=== PATIENT | male | born 1970 | race Caucasian/White ===

== ENCOUNTER 2017-01-23 07:00 | Inpatient (IN) | payer BC ==
--- NOTE | ~2017-01-23 | OR ---
Unit #: [id number] #: [id number] Patient: QUINN SESAY [id number] [address] [place], [place] [address] [id number] Elida MR#: [id number] NAME: QUINN SESAY. ROOM: 461 Date of Procedure: 01/23/2017 Admission Date: 01/23/2017 Surgeon: Ranjit Trejo III, M.D. : 1970 Attending Physician: Ranjit Trejo III, M.D. Referring Physician: Ranjit Trejo III, M.D. OPERATIVE REPORT PREOPERATIVE DIAGNOSES History of colostomy and perforated diverticulitis. POSTOPERATIVE DIAGNOSES History of colostomy and perforated diverticulitis. PROCEDURE PERFORMED Laparoscopic takedown of colostomy with colorectal anastomosis. DOCK BOSS Wolfgang Smith M.D. SPECIMEN Colostomy sent to pathology. COMPLICATIONS None apparent. ESTIMATED BLOOD LOSS Minimal. INDICATIONS FOR PROCEDURE This is a 46-year-old gentleman, who has undergone prior exploratory laparotomy with colostomy creation for perforated diverticulitis. He is here today for colostomy takedown. DESCRIPTION OF PROCEDURE After consent was obtained, the patient was brought to the operating room, placed in the supine position. General anesthetic was administered and a Church catheter was placed. He was then placed comfortably in dorsal lithotomy position. Next, I irrigated his rectum with Betadine and I closed this colostomy with a 2-0 silk pursestring suture. Next, we prepped and draped his abdomen in standard surgical fashion. I made a 5-mm incision in the right upper quadrant using Optiview to enter the peritoneal cavity without any difficulty. CO2 pneumoperitoneum was then established. Next, a second 5-mm port was placed in the right lower quadrant. I then began using a combination of sharp and blunt dissection to take down all the adhesions. I then obtained circumferential control around his ostomy. I then dissected out all the small bowel loops that were in the pelvic area to where I could easily see the rectal stump. Once this was done, I then made an elliptical incision around the colostomy. I was able to free it up from the surrounding fascial defect. Unit #: [id number] #: [id number] Patient: QIUNN SESAY Once the colostomy was freed up, I then divided the distal colostomy. I then passed the 29 mm EEA anvil through the distal colon opening and brought it out through the antimesenteric border. I then closed the distal colon opening with LENNOX 55 stapler. This was then placed back into the abdominal cavity. I then closed the fascial defect with interrupted #1 Vicryl suture. I then re-obtained CO2 pneumoperitoneum. Next, I passed some dilators up to rectum and was able to see the rectal stump. I did have to dissect this out slightly more to straighten it out. Once I had it mobilized, I then passed the 29-mm EEA stapler per rectum. We deployed the spike, which came out at the end of the rectal stump. I then attached the two ends of the stapler together. It was closed down without any twisting or torsion of the proximal colon. I then fired the stapler. We then removed the stapler without incident. I then submerged the anastomosis under irrigation fluid and occluded the proximal colon and insufflated air per rectum. There was no evidence of any air leak indicating that this was watertight. I then irrigated and had good hemostasis. All needle, sponge, and instrument counts were correct x2. I then reapproximated the skin edges with stapling device. The sterile dressings were then applied. The patient tolerated the procedure without any problems and returned to the recovery room in stable condition. Dictated by... Ranjit Trejo III, M.D. VCL/stone TD: 01/25/2017 00:49 JOB #: [id number] CC: Elvira Alfaro M.D. OPERATIVE REPORT X Ranjit Trejo III, MD PROCEDURE OPERATIVE NOTE
--- NOTE | ~2017-01-23 | DS ---
Unit #: [id number] #: [id number] Patient: QUINN SESAY [id number] [address] [address] [id number] I MR#: [id number] NAME: QUINN SESAY ROOM: 461 Age: 46 Sex: M Admission Date: 01/23/2017 : 1970 Discharge Date: 01/25/2017 Attending Physician: Ranjit Trejo III, M.D. Referring Physician: Ranjit Trejo III, M.D. Primary Care Physician: Rosalba Primary Care Physician DISCHARGE SUMMARY HISTORY/HOSPITAL COURSE Mr. Sesay was brought in the morning of surgery where he had laparoscopic reversal of his colostomy by Dr. Trejo. Postoperatively, he did very well. He was afebrile with stable vital signs throughout. He did not regain bowel function until late in the postoperative day and then after that was able to be readily advanced to a regular diet. The patient had several bowel movements. His abdomen was soft and nontender. His wounds are healing without complication. Laboratories are normal. He will be discharged home today with instructions to undergo diet as tolerated. He may ambulate ad aida but do no strenuous activity. Tegaderm has been placed over his wounds and he may leave the dressing intact in shower. He is to follow up with Dr. Trejo in one to two weeks. Prescription for hydrocodone was left. Dictated by... Karen Mccormack/heath TD: 01/26/2017 09:29 JOB #: [id number] DISCHARGE SUMMARY X Lul Ayala MD X DISCHARGE SUMMARY
[~2017-01-23 07:00] MED LIST: ALEVE220 M1 PO; LORTAB 5/500 TA1 TA1 PO; VICODIN ES 7.51 EAC1 PO
[2017-01-23] MEDS ORDERED: TYL325 PO (07:42)
[2017-01-23 15:57] LABS: BASOPHIL% 0.2 % (0-2.5); HEMATOCRIT 43.6 % (38.0-50.0); LYMPHOCYTE# 0.7 X10e3 (1.0-3.5); LYMPHOCYTE% 4.3 % (17.0-45.0); MEAN CELL VOLUME 95.5 FL (83-96); MEAN CORPUSCULAR HGB CONC 34.5 g/dL (30-36); MEAN PLATELET VOLUME 8.4 FL (6.5-11.5); MONOCYTE# 0.3 X10e3 (0-1.0); MONOCYTE% 1.6 % (3.0-12.0); NEUTROPHIL# 16.3 X10e3 (1.5-7.1); NEUTROPHIL% 93.9 % (40-75); PLATELET COUNT 211 X10e3 (140-420); RED BLOOD COUNT 4.56 X10e (3.90-5.60); RED CELL DISTRIBUTION WIDTH 13.6 % (11.0-15.5); WHITE BLOOD COUNT 17.4 X10e3 (4.0-10.5)
[2017-01-23 15:58] LABS: DIFF IND YES
[2017-01-23 16:16] LABS: PLATELET ESTIMATE NORMAL (NORMAL); RBC NORMAL YES
[2017-01-24 03:52] LABS: EOSINOPHIL% 0.1 % (0.0-7.0); HEMOGLOBIN 13.1 gm/dL (13.0-16.0); LYMPHOCYTE# 1.3 X10e3 (1.0-3.5); LYMPHOCYTE% 6.6 % (17.0-45.0); MEAN CELL VOLUME 94.9 FL (83-96); MEAN CORPUSCULAR HEMOGLOBIN 31.8 PG (28-34); MEAN CORPUSCULAR HGB CONC 33.5 g/dL (30-36); MEAN PLATELET VOLUME 8.6 FL (6.5-11.5); MONOCYTE# 1.3 X10e3 (0-1.0); MONOCYTE% 6.3 % (3.0-12.0); NEUTROPHIL# 17.3 X10e3 (1.5-7.1); PLATELET COUNT 215 X10e3 (140-420); RED BLOOD COUNT 4.11 X10e (3.90-5.60); RED CELL DISTRIBUTION WIDTH 13.1 % (11.0-15.5); WHITE BLOOD COUNT 19.9 X10e3 (4.0-10.5)
[2017-01-24 03:54] LABS: DIFF IND NO
[2017-01-24 04:15] LABS: BLOOD UREA NITROGEN 19 mg/dL (9-23); BUN/CREATININE RATIO 14.61; CALCIUM SERUM 8.5 mg/dL (8.4-10.2); CARBON DIOXIDE 23 mmol/L (22-31); CHLORIDE 106 mmol/L (100-111); CREATININE SERUM 1.3 mg/dL (0.6-1.4); GLOM FILT RATE Estimated ABOVE60 mL/min (>60); GLUCOSE FASTING 117 mg/dL (70-110); POTASSIUM 4.3 mmol/L (3.5-5.1); SODIUM 136 mmol/L (135-145)
[2017-01-25 03:48] LABS: HEMATOCRIT 28.8 % (38.0-50.0); MEAN CELL VOLUME 95.2 FL (83-96); MEAN CORPUSCULAR HGB CONC 34.7 g/dL (30-36); MEAN PLATELET VOLUME 8.7 FL (6.5-11.5); RED BLOOD COUNT 3.03 X10e (3.90-5.60); RED CELL DISTRIBUTION WIDTH 13.2 % (11.0-15.5); WHITE BLOOD COUNT 11.5 X10e3 (4.0-10.5)
[2017-01-25 04:21] LABS: BLOOD UREA NITROGEN 21 mg/dL (9-23); BUN/CREATININE RATIO 19.09; CARBON DIOXIDE 26 mmol/L (22-31); CHLORIDE 104 mmol/L (100-111); CREATININE SERUM 1.1 mg/dL (0.6-1.4); GLOM FILT RATE Estimated ABOVE60 mL/min (>60); GLUCOSE FASTING 93 mg/dL (70-110); POTASSIUM 3.8 mmol/L (3.5-5.1); SODIUM 135 mmol/L (135-145)
[2017-01-25] MEDS ORDERED: HYDROCODONE/APA1 T15 PO (08:16)
[2017-08-10] MEDS ORDERED: NO MEDICATIONS (14:06)
== END 2017-01-25 10:45 | disposition home or self-care (01) | DRG 331 ==
LOC: CSUR 07:00 → CPACUOF 08:26 → C4C 13:55
PROVIDERS: Specialist; Surgery
PROC: 0DBE4ZZ Excision of Large Intestine, Percutaneous Endoscopic Approach (ICD-10-PCS; principal; 2017-01-23 09:00)
DX: Z43.3 Encounter for attention to colostomy (principal); Z98.890 Other specified postprocedural states
CPT/HCPCS: 80048; 83735; 85025; 85027; 88304; J1170; J1650; J1885; J2250; J2270; J3010

== ENCOUNTER 2017-02-18 11:23 | Inpatient (IN) | payer BC ==
--- NOTE | ~2017-02-18 | DS ---
Unit #: [id number] #: [id number] Patient: QUINN SESAY [id number] [address] [address] [id number] I MR#: [id number] NAME: QUINN SESAY. ROOM: 478 Age: 46 Sex: M Admission Date: 02/18/2017 : 1970 Discharge Date: 02/20/2017 Attending Physician: Lul Ayala M.D. Referring Physician: Lul Ayala M.D. Primary Care Physician: Rosalba Primary Care Physician DISCHARGE SUMMARY DIAGNOSIS Colostomy site hematoma versus abscess. PROCEDURES PERFORMED Interventional radiology drainage of fluid collection ostomy takedown site. HOSPITAL COURSE The patient is a 46-year-old gentleman who is status post ostomy reversal. He presents with abdominal pain, nausea and increased white count. CT scan showed a fluid collection at his ostomy site. This was drained by interventional radiology. His pain resolved. His nausea resolved. DISPOSITION The patient is discharged home in good condition. He is to continue with Hemovac drain. ACTIVITY Activity was discussed. FOLLOWUP He is to follow up with Dr. Trejo on Thursday. DISCHARGE MEDICATIONS 1. Home medications. 2. [place] 7.5 mg q.4 h. p.r.n. 3. Augmentin 875 mg b.i.d. Dictated by... Jewel Jay M.D. JNO/gz TD: 02/20/2017 09:01 JOB #: [id number] Unit #: [id number] #: [id number] Patient: QUINN SESAY DISCHARGE SUMMARY Page 1 of 1 X Jewel Jay MD DISCHARGE SUMMARY
--- NOTE | ~2017-02-18 | CT2 ---
[facility] A Service of [facility] & [facility] RADIOLOGY TEXT RESULTS PATIENT: QUINN SESAY LOCATION: [place] [address]- : [birth year] UNIT #: [id number] AGE: [address]: Lul Ayala MD SEX: M ORDER DR: [id number] [facility] [address] [place], [place] [address] [id number] I MR#: [id number] Acc #: [id number] NAME: QUINN SESAY : 1970 SEX: M STUDY DATE/TIME: 02/18/2017 13:41 UNIT: [facility] ROOM: 8 STUDY DESCRIPTION: CT Abd and Pelv W Cont Attending Physician: Lul Ayala M.D. Referring Physician: Lul Ayala M.D. Ordering Physician: Lul Ayala M.D. MEDICAL IMAGING REPORT This report is preliminary unless electronic signature is present EXAM CT abdomen and pelvis with contrast 02/18/2017 1341 hours HISTORY 46-year-old man who underwent colostomy reversal surgery 01/23/2017. Patient presents with new onset nausea and redness and infection at the surgical wound. Progressive symptoms since 01/23/2017. COMPARISON Abdominal film 09/14/[address] abdomen and pelvis 09/10/[address] images were obtained from the lung bases through the pubic symphysis. Sagittal and coronal reconstructions were performed. Contrast was Isovue-370 100 mL IV. Total exam DLP 913 mGy-cm. This CT exam was performed with one or more of the following radiation dose reduction techniques: automatic control, adjustment of mA and/or kV according to patient size, and iterative reconstruction. FINDINGS Images through the lung bases are clear. There are no effusions. The distal esophagus is normal. Images through the abdomen demonstrate a normal appearance to the liver, spleen, pancreas, gallbladder and bile ducts. The adrenal glands and kidneys are normal. The abdominal aorta is normal in caliber. There is a well-defined fluid collection in the anterior midline abdomen centrally just to the left of midline measuring up to 14.2 x 11.2 x 16.8 cm. This abuts the anterior rectus fascia and extends leftward into the lower left anterior abdomen. There is thickening of the left sided rectus muscle superficial to this with mild linear stranding in the adjacent fat which could represent the prior ileostomy site. There is no gas seen STS. [facility] A Service of [facility] & [facility] RADIOLOGY TEXT RESULTS PATIENT: QUINN SESAY LOCATION: [facility] 478-01 : [birth year] UNIT #: [id number] AGE: [address]: Lul Ayala MD SEX: M ORDER DR: within this well-defined collection. This could represent an abscess or seroma. Central density measurement is 13 Hounsfield units. There is some displacement of bowel around this fluid collection without definite bowel involvement. The stomach and small bowel are nondilated. There is no colonic wall thickening. There is end-to-side anastomoses in the mid sigmoid colon region without evidence of fluid, wall thickening or abscess. The rectum is normal. Prostate gland contains benign calcifications without change. IMPRESSION 1. There is a large well-defined anterior abdominal fluid collection measuring 14.2 x 11.3 x 16.8 cm in the midline abdomen, slightly to the left extending along the posterior margin of the rectus fascia extending inferiorly and displacing loops of bowel. This has a thin well-defined wall but no definite gas or calcification. The overlying left rectus muscle is thickened relative to the right and there is some linear injection of the subcutaneous fat superficial to the rectus muscle which could represent the site of previous ostomy. This is new from 09/10/2016. Findings could represent an abscess or large seroma or chronic hematoma. The central density measurement is only 13 Hounsfield units which is indeterminate. Lesion would be amendable to CT-guided or ultrasound-guided aspiration and/or catheter placement as desired. 2. There is an end-to-side anastomoses in the region of the sigmoid colon without evidence of wall thickening or leak. 3. No acute abnormalities are seen elsewhere in the abdomen or pelvis. STAT * RESULT Dictated by... Court Portillo M.D. THIS IS AN ELECTRONICALLY VERIFIED REPORT Court Portillo M.D. at 02/18/2017 5:19 PM ELISA/raúl TD: 02/18/2017 14:18 JOB #: [id number] MEDICAL IMAGING REPORT Page 1 of 1 COPY
--- NOTE | ~2017-02-18 | XA259 ---
[facility] Service of [facility] RADIOLOGY TEXT RESULTS PATIENT: QUINN SESAY LOCATION: [facility] 47- : 72 UNIT #: [id number] AGE: [address]: Lul Ayala MD SEX: M ORDER DR: [id number] [facility] [address] [place], [place] [address] [id number] I MR#: [id number] Acc #: [id number] NAME: QUINN SESAY. : 1970 SEX: M STUDY DATE/TIME: 02/19/2017 12:42 UNIT: [facility] ROOM: [facility] STUDY DESCRIPTION: SUHA Jo Cath Anamika/Retro w/im Attending Physician: Lul Ayala M.D. Referring Physician: Lul Ayala M.D. Ordering Physician: Lul Ayala M.D. Primary Care Physician: No Primary Care Physician MEDICAL IMAGING REPORT This report is preliminary unless electronic signature is present EXAM Ultrasound-guided abdominal drain placement. DATE OF EXAM 02/19/2017 INDICATIONS 46-year-old male with history of recent ostomy takedown. He presents with a large intraabdominal fluid collection on the left just beneath the abdominal wall. This is concerning for possibly an abscess. MEDICATIONS ADMINISTERED IV Versed and Fentanyl. Approximately 30 minutes of sedation time was monitored by appropriately credentialed radiology nursing staff. The risks, benefits and alternatives of the procedure were discussed with the patient and an informed consent was obtained. In the procedure room, a time-out was performed confirming correct patient and procedure. All elements of maximum sterile-barrier technique utilized according to guidelines appropriate for the procedure. TECHNIQUE/FINDINGS Ultrasound of the left side of the abdomen was performed. This demonstrated a large fluid collection which corresponded with the collection demonstrated on the recent CT. The overlying skin was prepped and draped in the usual sterile fashion. 1% lidocaine was utilized to anesthetize the skin and underlying subcutaneous tissues. Next, under ultrasound guidance, a 5-Brazilian Yueh catheter was inserted into this collection. There is return of old blood. A superstiff guidewire was advanced through the catheter. The catheter was removed and the track was serially dilated to 12-Brazilian. Next, a 12-Brazilian pigtail catheter was advanced over the guidewire and positioned within the center of the collection. A sample of old blood was aspirated and sent for culture. [facility] Service of [facility] RADIOLOGY TEXT RESULTS PATIENT: QUINN SESAY LOCATION: [place] [address] : [birth year] UNIT #: [id number] AGE: [address]: Lul Ayala MD SEX: M ORDER DR: The drain was hooked up to suction drainage and a sterile dressing was applied. The drain was sutured into place. The patient tolerated the procedure well without immediate complications. IMPRESSION Technically successful placement of a 12-Brazilian pigtail drain into a intraabdominal fluid collection containing old blood. Dictated by... Kendell Rodriguez M.D. THIS IS AN ELECTRONICALLY VERIFIED REPORT Kendell Rodriguez M.D. at 02/20/2017 2:34 PM DONALD/hammad TD: 02/19/2017 19:39 JOB #: [id number] MEDICAL IMAGING REPORT Page 1 of 1 COPY
--- NOTE | ~2017-02-18 | HP ---
Unit #: [id number] #: [id number] Patient: QUINN SESAY [id number] [address] [address] [id number] Elida MR#: [id number] NAME: QUINN SESAY ROOM: 478 Age: 46 Sex: M Admission Date: 02/18/2017 : 1970 Attending Physician: Lul Ayala M.D. Referring Physician: Lul Ayala M.D. HISTORY AND PHYSICAL HISTORY AND EXAM Mr. Sesay is a 46-year-old gentleman who previously had perforated diverticulitis requiring emergency surgery and colostomy formation. After he had recovered, his colostomy was reversed by Dr. Trejo and he was at home doing well until today when he called stating that he was complaining of nausea, fever and increasing abdominal pain. I ordered outpatient labs and a CT scan of the abdomen and pelvis. His labs were generally unremarkable except for a white count of 16,[address] scan he had a intraabdominal abscess that was not related to the anastomotic site. It probably is related to the old stoma site. It was amenable, according to the Radiologist, to percutaneous drainage. PAST MEDICAL HISTORY 1. Diverticulitis with perforation as described above. 2. Epididymoorchitis. 3. He has had some chronic right knee discomfort. 4. He has had an appendectomy. 5. Umbilical hernia repair. 6. Previous below knee fracture. 7. [place] spotted fever. ALLERGIES No allergies to medication. CURRENT MEDICATIONS Current medications include [place] 7.5 for pain otherwise no medications. FAMILY HISTORY He is unaware of any chronic or inheritable diseases. SOCIAL HISTORY Social alcohol drinker; he quit smoking five years ago. REVIEW OF SYSTEMS He has nausea but no vomiting. His bowel movements have been normal with no hematochezia or melena. No hematemesis He has had low-grade fever. PHYSICAL EXAMINATION GENERAL APPEARANCE: On current examination the patient is awake, alert and oriented in the CT scan waiting room. HEENT: Unremarkable. CARDIAC EXAM: Regular rhythm. Unit #: [id number] #: [id number] Patient: QUINN SESAY LUNGS: Clear. ABDOMEN: Abdomen is soft. He has a little bit of eschar at his stoma site wound but no erythema or warmth. His abdomen is otherwise soft but he does complaint of tenderness. There is no involuntary guarding or rebound. EXTREMITIES: No edema. NEURLOGICALLY: Grossly intact. DIAGNOSTIC STUDIES LABORATORY: Laboratories are on the chart, white count 16 and chemistry otherwise generally unremarkable except for some elevation of the transaminase. IMAGING: CT scan shows an abscess as described. It does not appear to be related to an anastomotic leak. ASSESSMENT AND PLAN Patient with a symptomatic intraabdominal abscess: We plan on admitting the patient to the hospital for percutaneous drainage by Interventional Radiology. In the interim he will be started on IV antibiotics and followed to the resolution of this problem. I have discussed this with the patient. He understands and agrees to admission. Dictated by Karen Mccormack/phi TD: 02/18/2017 15:04 JOB #: [id number] HISTORY AND PHYSICAL Page 1 of 1 X Lul Ayala MD X HISTORY AND PHYSICAL
[~2017-02-18 11:23] MED LIST changes: +HYDROCODONE/APA1 T15 PO; +TYL325 PO
[2017-02-18 12:07] LABS: URINE APPEARANCE CLOUDY; URINE BLOOD NEG (NEG); URINE GLUCOSE NEG (NEG); URINE KETONE TRACE (NEG); URINE LEUKOCYTE ESTERASE TRACE (NEG); URINE NITRATE NEG (NEG); URINE PH 5.5 (5-8); URINE PROTEIN 1+ (NEG)
[2017-02-18 12:10] LABS: HEMATOCRIT 36.3 % (38.0-50.0); HEMOGLOBIN 12.1 gm/dL (13.0-16.0); MEAN CELL VOLUME 90.4 FL (83-96); MEAN CORPUSCULAR HEMOGLOBIN 30.2 PG (28-34); MEAN CORPUSCULAR HGB CONC 33.4 g/dL (30-36); MEAN PLATELET VOLUME 7.8 FL (6.5-11.5); RED BLOOD COUNT 4.02 X10e (3.90-5.60); RED CELL DISTRIBUTION WIDTH 14.8 % (11.0-15.5); URINE BACTERIA AUWI NEG (NEGATIVE); URINE SQUAMOUS EPITHELIAL CELL NONE SEEN /[HPF]; UWBCS1 AUWI 0-2 (0-5); WHITE BLOOD COUNT 16.1 X10e3 (4.0-10.5)
[2017-02-18 12:12] LABS: URINE BILIRUBIN NEG (NEG)
[2017-02-18 12:13] LABS: URINE COLOR DK YELLOW; URINE SOURCE CLEAN CATCH
[2017-02-18 13:01] LABS: ALBUMIN SERUM 3.2 g/dL (3.5-5.0); BILIRUBIN,TOTAL 1.2 mg/dL (0.2-2.0); CALCIUM SERUM 9.3 mg/dL (8.4-10.2); GLOM FILT RATE Estimated 90.5 mL/min (>60); POTASSIUM 4.4 mmol/L (3.5-5.1)
[2017-02-19 09:12] LABS: PARTIAL THROMBOPLASTIN TIME 30.1 SECONDS (23.5-31.3); PROTHROMBIN TIME (PATIENT) 10.9 SECONDS (9.6-11.5)
[2017-02-20] MEDS ORDERED: AUGMENTIN PO (10:07)
[2017-02-20] MEDS ORDERED: HYDROCODON-ACE1 EAC9 PO (10:10)
[2017-08-10] MEDS ORDERED: NO MEDICATIONS (14:06)
== END 2017-02-20 10:41 | disposition home or self-care (01) | DRG 863 ==
LOC: CCAT 11:23 → C4C 14:50
PROVIDERS: Radiology Diagnostic Radiology; Specialist
PROC: 0W9F30Z Drainage of Abdominal Wall with Drainage Device, Percutaneous Approach (ICD-10-PCS; principal; 2017-02-19)
DX: T81.4XXA Infection following a procedure, initial encounter (principal); L02.211 Cutaneous abscess of abdominal wall; L76.32 Postprocedural hematoma of skin and subcutaneous tissue following other procedure; Y83.8 Other surgical procedures as the cause of abnormal reaction of the patient, or of later complication, without mention of misadventure at the time of the procedure; Z87.891 Personal history of nicotine dependence
CPT/HCPCS: 36415; 74177; 76942; 80053; 81003; 82150; 83690; 85027; 85610; 85730; 87070; 87075; 87205; J1650; J2250; J2270; J2405; J2543; J2550; J3010; Q9967

== ENCOUNTER → 2017-02-23 | Outpatient (CLI) | payer BC ==
[~2017-02-23] MED LIST changes: +AUGMENTIN PO; +HYDROCODON-ACE1 EAC9 PO; +NO MEDICATIONS
--- NOTE | ~2017-02-23 | CT2 ---
[facility] A Service of [facility] & [facility] RADIOLOGY TEXT RESULTS PATIENT: QUINN SESAY [facility] UN[facility] #: [id number] AGE: [address]: Jewel Jay MD SEX: M ORDER DR: [id number] [facility] [address] [place], [place] [address] [id number] O MR#: [id number] Acc #: [id number] NAME: QUINN SESAY : 1970 SEX: M STUDY DATE/TIME: 02/23/2017 10:46 UNIT: [facility] ROOM: STUDY DESCRIPTION: CT Abd and Pelv W Cont Attending Physician: Jewel Jay M.D. Referring Physician: Jewel Jay M.D. Ordering Physician: Jewel Jay M.D. Primary Care Physician: Primary Care Physician No MEDICAL IMAGING REPORT This report is preliminary unless electronic signature is present EXAM CT of the abdomen and pelvis with contrast INDICATION Intraabdominal abscess. This is identified on a CT which was performed February 18, 2017. The patient subsequently underwent drain placement on February 19, 2017. This is a followup study. TECHNIQUE Axial CT images were obtained from the dome of the diaphragm through the symphysis pubis following the administration of intravenous contrast material. This CT exam was performed with one or more of the following radiation dose reduction techniques: automatic exposure control, adjustment of mA and/or kV according to patient size, and iterative reconstruction. FINDINGS Images through the lung bases are clear. The visualized portions of the liver appear unremarkable as are the spleen, stomach, proximal small bowel, adrenal glands, gallbladder, left kidney and pancreas. Patient has a low-attenuation lesion seen within the inferior pole of the right kidney which is too small to accurately characterize but may reflect a cyst. An additional low-attenuation lesion is seen within the superior pole and again may reflect a cyst. Patient is again noted to have a collection within the left upper quadrant. This is smaller than on prior study and a drain has been placed within it. Collection now measures 9.1 x 4.1 cm, previously 14.2 x 11.3 cm. Drain appears to be appropriately positioned within the collection. There is no evidence of mechanical bowel obstruction. There are changes of prior colon resection, again no evidence of obstruction. No free fluid or adenopathy is seen within the pelvis. Dystrophic calcifications are seen within the prostate gland. Urinary bladder is within normal limits. [facility] A Service of [facility] RADIOLOGY TEXT RESULTS PATIENT: QUINN SESAY LOCATION: [facility] : 72 UNIT #: [id number] AGE: [address]: Jewel Jay MD SEX: M ORDER DR: Review of bony windows does not demonstrate any aggressive osseous abnormalities. IMPRESSION 1. Previously identified left upper quadrant collection has diminished in size now measuring 9.1 x 4.2 cm, previously 14.2 x 11.3 cm. Given persistent fluid within the collection, I would suggest leaving the drain in place for several more days before performing a repeat CT scan. The drain does appear to be putting out material still so I do not think that it is clogged. 2. Changes of prior colon resection without evidence of obstruction, 3. Suspected right renal cysts. Please see the body of the report for any other additional incidental findings. Dictated by... Fiordaliza Singh M.D. THIS IS AN ELECTRONICALLY VERIFIED REPORT Fiordaliza Singh M.D. at 02/23/2017 5:09 PM ACACIA/kerry TD: 02/23/2017 14:29 JOB #: [id number] MEDICAL IMAGING REPORT Page 1 of 1 COPY
== END | disposition home or self-care (01) ==
LOC: CCAT 09:37
DX: T81.4XXA Infection following a procedure, initial encounter (principal); Z90.49 Acquired absence of other specified parts of digestive tract
CPT/HCPCS: 74177; Q9967

== ENCOUNTER → 2017-02-26 | Outpatient (CLI) | payer BC ==
--- NOTE | ~2017-02-26 | XA259 ---
[facility] A Service of [facility] RADIOLOGY TEXT RESULTS PATIENT: QUINN SESAY LOCATION: [facility] : 72 UNIT #: [id number] AGE: [address]: Ranjit Trejo III, MD SEX: M ORDER DR: [id number] [facility] [address] [place], [place] [address] [id number] O MR#: [id number] [facility] #: [id number] NAME: QUINN SESAY. : 1970 SEX: M STUDY DATE/TIME: 02/26/2017 12:00 UNIT: [facility] ROOM: STUDY DESCRIPTION: SUHA Jo Cath Anamika/Retro w/im Attending Physician: Ranjit Trejo III, M.D. Referring Physician: Ranjit Trejo III, M.D. Ordering Physician: Fiordaliza Singh M.D. Primary Care Physician: Rosalba Primary Care Physician MEDICAL IMAGING REPORT This report is preliminary unless electronic signature is present EXAM Fluoroscopically guided abdominal abscess drain exchange. INDICATION Mr. Sesay is a 46-year-old man who underwent placement of a drain and intraabdominal abscess on 02/19/2017. This appeared to be old blood. He underwent repeat CT scan today which showed a persistent residual fluid collection. He is having some drainage from the drain but I wondered if it was intermittently clogging so I opted to exchange it. PROCEDURE The procedure was explained to the patient including risks, benefits, potential complications, and potential for alternative forms of treatment. Informed consent was obtained and prior to initiating the procedure, a formal time-out procedure was performed. Using all elements of maximal sterile barrier technique including hand hygiene, caps, sterile gowns and gloves and masks, the preexisting drain was prepped with 2% chlorhexidine for cutaneous antisepsis and covered with a large sterile sheet. Preliminary fluoroscopic image was obtained after the injection of contrast which showed loculated material within the cavity. I advanced an Amplatz wire through the catheter which was then removed over a wire and a new 12-Uzbek drain was advanced over the line and positioned within the collection. There was some drainage of serosanguineous material. Following placement of the catheter, it was secured with an adhesive dressing and placed to suction drainage. Ultimately, this patient may require upsize of the drain to a 14-Uzbek catheter if the collection fails to resolve following catheter exchange. IMPRESSION Successful replacement of this patient's 12-Uzbek pigtail drainage catheter within the intraabdominal collection. Ultimately, due to the loculated material the drain may need to be upsized following his next CT STS. [facility] A Service of [facility] RADIOLOGY TEXT RESULTS PATIENT: QUINN SESAY LOCATION: [facility] : 72 UNIT #: [id number] AGE: [address]: Ranjit Trejo III, MD SEX: M ORDER DR: if the collection fails to improve. Dictated by... Fiordaliza Singh M.D. THIS IS AN ELECTRONICALLY VERIFIED REPORT Fiordaliza Singh M.D. at 02/28/2017 2:05 PM AFF/tmw TD: 02/27/2017 10:44 JOB #: [id number] MEDICAL IMAGING REPORT Page 1 of 1 COPY
--- NOTE | ~2017-02-26 | CT2 ---
[facility] A Service of [facility] & [facility] RADIOLOGY TEXT RESULTS PATIENT: QUINN SESAY LOCATION: [facility] : 71 UNIT #: [id number] AGE: [address]: Ranjit Trejo III, MD SEX: M ORDER DR: [id number] [facility] [address] [place], [place] [address] [id number] O MR#: [id number] [facility] #: [id number] NAME: QUINN SESAY. : 1970 SEX: M STUDY DATE/TIME: 02/26/2017 10:38 UNIT: [facility] ROOM: STUDY DESCRIPTION: CT Abd and Pelv W Cont Attending Physician: Ranjit Trejo III, M.D. Referring Physician: Ranjit Trejo III, M.D. Ordering Physician: Ranjit Trejo III, M.D. Primary Care Physician: No Primary Care Physician MEDICAL IMAGING REPORT This report is preliminary unless electronic signature is present EXAM CT abdomen and pelvis with contrast. INDICATION Mr. Sesay is a 46-year-old man. He had a history of colostomy reversal surgery on 01/23/2017. He subsequently developed a fluid collection within the left upper quadrant measuring up to 11.3 x 14.2 cm. He subsequent underwent drain placement in this collection on 02/19/2017. Repeat CT on 02/23/2017 showed persistence of the collection. His drain was subsequently flushed. He returns for reevaluation today. TECHNIQUE Axial CT images were obtained from dome of the diaphragm through symphysis pubis following administration of intravenous contrast material. This CT exam was performed with one or more of the following radiation dose reduction techniques: automatic exposure control, adjustment of mA and/or kV according to patient size, and iterative reconstruction. FINDINGS Fluid collection within the left upper quadrant is stable to perhaps slightly smaller in size when compared to the most recent CT. It measures 7.7 x 4.0 cm, previously it measured 9.1 x 4.1 cm. Images through the lung bases are clear. Stomach and proximal small bowel within normal limits. The liver and gallbladder appear normal, as do the spleen and pancreas. Adrenal glands are within normal limits, as is the left kidney. Patient has probably a right renal cyst. There is some persistent residual inflammatory stranding around the collection, but it is probably not significantly changed when compared to prior study. There are postsurgical changes involving the sigmoid colon without evidence of obstruction. Prostate gland is enlarged and contains some dystrophic calcifications. Some mild inflammatory stranding is also seen involving the sigmoid colon, likely STS. [facility] A Service of [facility] / [facility] RADIOLOGY TEXT RESULTS PATIENT: QUINN SESAY LOCATION: [facility] : 71 UNIT #: [id number] AGE: [address]: Ranjit Trejo III, MD SEX: M ORDER DR: postsurgical in nature. Review of bony windows does not reveal any aggressive osseous abnormalities. IMPRESSION 1. Persistence of the patient's left upper quadrant collection. We will plan on drain exchange to see if this improves drainage of the collection. Ultimately the patient may require upsize of the drain for full evacuation of this collection. 2. Postsurgical changes involving the sigmoid colon, without evidence of obstruction. 3. Suspected right renal cyst. Dictated by... Fiordaliza Singh M.D. THIS IS AN ELECTRONICALLY VERIFIED REPORT Fiordaliza Singh M.D. at 02/28/2017 2:08 PM ACACIA/johnnie TD: 02/27/2017 11:42 JOB #: [id number] MEDICAL IMAGING REPORT Page 1 of 1 COPY
== END | disposition home or self-care (01) ==
LOC: CCAT 09:37
DX: T81.4XXA Infection following a procedure, initial encounter (principal)
CPT/HCPCS: 74177; 75984; 76080; J2250; J3010; Q9967

== ENCOUNTER → 2017-03-02 | Outpatient (CLI) | payer BC ==
--- NOTE | ~2017-03-02 | CT4 ---
[facility] A Service of [facility] / [facility] RADIOLOGY TEXT RESULTS PATIENT: QUINN SESAY LOCATION: [facility] : 71 UNIT #: [id number] AGE: [address]: Ranjit Trejo III, MD SEX: M ORDER DR: [id number] [facility] [address] [place], [place] [address] [id number] O MR#: [id number] Acc #: [id number] NAME: QUINN SESAY. : 1970 SEX: M STUDY DATE/TIME: 03/02/2017 9:42 UNIT: [facility] ROOM: STUDY DESCRIPTION: CT Abd and Pelv Wo Cont Attending Physician: Ranjit Trejo III, M.D. Referring Physician: Ranjit Trejo III, M.D. Ordering Physician: Ranjit Trejo III, M.D. Primary Care Physician: Primary Care Physician No MEDICAL IMAGING REPORT This report is preliminary unless electronic signature is present EXAM Abdomen and pelvis CT no contrast, 03/02/2017 INDICATION 46-year-old male with history of abdominal abscess. History of drain placement. History of colon surgery. No history of malignancy. TECHNIQUE Noncontrast abdomen and pelvis CT was performed. This CT exam was performed with one or more of the following radiation dose reduction techniques: automatic exposure control, adjustment of mA and/or kV according to patient size, and iterative reconstruction. COMPARISON 02/26/[address] ABDOMEN: Exam degraded by noncontrast technique. Included lung bases clear. There is no pericardial or pleural effusion. Aorta demonstrates no aneurysm. Spleen, adrenal glands, pancreas and gallbladder unremarkable. Liver unremarkable. Kidneys are normal. CT PELVIS: Bladder unremarkable. Prostate unremarkable. No drainable fluid collection in the pelvis. Patient is status post sigmoid colonic surgery and reanastomosis. There is residual stranding at the operative site but no drainable fluid collection is seen or adenopathy present. No evidence of upstream obstruction. Appendix appears to be surgically absent. There is redemonstration of a fluid collection deep to the rectus [facility] A Service of [facility] RADIOLOGY TEXT RESULTS PATIENT: QUINN SESAY LOCATION: [facility] : 71 UNIT #: [id number] AGE: [address]: Ranjit Trejo III, MD SEX: M ORDER DR: musculature on the left. There is a drainage catheter within the fluid collection. It measures up to a maximum diameter of the about 7.6 x 4.4 cm, previously 7.7 x 4.0 cm. There is some high-attenuation fluid within the collection which is nonspecific and may reflect recent manipulation or contrast injection or proteinaceous debris. Probable tiny dot of air within the collection. Drainage catheter appears to be in satisfactory position centrally within the collection. No new drainable fluid collection identified. Inguinal canals are unremarkable. No suspicious bone lesion. IMPRESSION 1. Persistent fluid collection in the left upper quadrant with a drainage catheter present. It is stable to perhaps minimally smaller than on the prior study. There is some high-attenuation fluid within the collection that may reflect proteinaceous debris or blood products or recent injection of contrast material and this should be correlated clinically. 2. Redemonstration of postoperative changes of the base of the cecum and sigmoid colon. No bowel obstruction. 3. No hydronephrosis or obstructing stone with respect to either kidney. Dictated by... Andrae Georges M.D. THIS IS AN ELECTRONICALLY VERIFIED REPORT Andrea Georges M.D. at 03/02/2017 10:46 PM Kelsie TD: 03/02/2017 16:05 JOB #: [id number] MEDICAL IMAGING REPORT Page 1 of 1 COPY
== END | disposition home or self-care (01) ==
LOC: CCAT 09:04
DX: T81.4XXA Infection following a procedure, initial encounter (principal); Z97.8 Presence of other specified devices; Z98.890 Other specified postprocedural states
CPT/HCPCS: 74176

== ENCOUNTER → 2017-03-04 | Outpatient (CLI) | payer BC ==
--- NOTE | ~2017-03-04 | XA3 ---
[facility] A Service of [facility] & [facility] RADIOLOGY TEXT RESULTS PATIENT: QUINN SESAY LOCATION: [facility] : 71 UNIT #: [id number] AGE: [address]: Lul Ayala MD SEX: M ORDER DR: [id number] [facility] [address] [place], [place] [address] [id number] O MR#: [id number] Acc #: [id number] NAME: QUINN SESAY. : 1970 SEX: M STUDY DATE/TIME: 03/04/2017 9:30 UNIT: [facility] ROOM: STUDY DESCRIPTION: XA Abscess Drain Injection Attending Physician: Lul Ayala M.D. Ordering Physician: Lul Ayala M.D. Primary Care Physician: No Primary Care Physician MEDICAL IMAGING REPORT This report is preliminary unless electronic signature is present EXAM Abscess drain injection and change under fluoroscopy 03/04/2017. HISTORY Left lower quadrant abscess status post colostomy placement. PROCEDURE The procedure and risks and options were discussed with the patient who understands and wishes to proceed. The tube over the left flank was prepped and draped with chlorhexidine solution. Maximal sterile barrier technique was utilized including gloves, gowns, hats, masks, and shoe covers. The tube was injected and subsequently a 0.035 wire was inserted and the tube removed under local anesthesia. A new 16-Maltese drain was placed. This was injected and felt to be in good position. Drain was then irrigated yielding large amounts of very thick fluid with large pieces of debris. The tube was left to [place] drainage. It was sewn in place with 2-0 silk suture. Total fluoroscopy time was 1.2 minutes. Total exposure estimated 39 mGy air kerma. 3 images were recorded. CONCLUSION Successful upsize of the patient's drain to 16-Maltese with irrigation of the drain as noted above. The patient has been scheduled for a follow up appointment in 5 days for reevaluation of the tube. He has been instructed to irrigate the tube with 10 mL of sterile saline and withdraw all fluid twice a day until that time. Assuming that the collection has resolved tube will be removed at the time of return. Dictated by... Jewel Stark M.D. THIS IS AN ELECTRONICALLY VERIFIED REPORT Jewel Stark M.D. at 03/05/2017 7:22 AM JEREMY/jayla [facility]. [facility] A Service of [facility] & [facility] RADIOLOGY TEXT RESULTS PATIENT: QUINN SESAY LOCATION: [facility] #: [id number] : 72 UNIT #: [id number] AGE: [address]: Lul Ayala MD SEX: M ORDER DR: TD: 03/04/2017 15:22 JOB #: [id number] MEDICAL IMAGING REPORT Page 1 of 1 COPY
[2017-03-04 08:13] LABS: HEMATOCRIT 41.1 % (38.0-50.0); HEMOGLOBIN 13.4 gm/dL (13.0-16.0); MEAN CELL VOLUME 92.8 FL (83-96); MEAN CORPUSCULAR HEMOGLOBIN 30.2 PG (28-34); MEAN CORPUSCULAR HGB CONC 32.5 g/dL (30-36); MEAN PLATELET VOLUME 7.8 FL (6.5-11.5); RED BLOOD COUNT 4.43 X10e (3.90-5.60); RED CELL DISTRIBUTION WIDTH 15.8 % (11.0-15.5); WHITE BLOOD COUNT 9.1 X10e3 (4.0-10.5)
[2017-03-04 08:25] LABS: INR 0.9; PARTIAL THROMBOPLASTIN TIME 28.6 SECONDS (23.5-31.3); PROTHROMBIN TIME (PATIENT) 9.9 SECONDS (9.6-11.5)
== END | disposition home or self-care (01) ==
LOC: CIVR 07:41
PROVIDERS: Specialist
PROC: 0W2FX0Z Change Drainage Device in Abdominal Wall, External Approach (ICD-10-PCS; principal; 2017-03-04)
DX: Z46.82 Encounter for fitting and adjustment of non-vascular catheter (principal); K65.1 Peritoneal abscess; I49.1 Atrial premature depolarization; I49.3 Ventricular premature depolarization
CPT/HCPCS: 36415; 75984; 76080; 85027; 85610; 85730; C1729; J2250; J3010; Q9967

== ENCOUNTER → 2017-03-09 | Outpatient (CLI) | payer BC ==
--- NOTE | ~2017-03-09 | XA3 ---
[facility] A Service of [facility] RADIOLOGY TEXT RESULTS PATIENT: QUINN SESAY LOCATION: [facility] : 72 UNIT #: [id number] AGE: [address]: Ranjit Trejo III, MD SEX: M ORDER DR: [id number] [facility] [address] [place], [place] [address] [id number] O MR#: [id number] Acc #: [id number] NAME: QUINN SESAY : 1970 SEX: M STUDY DATE/TIME: 03/09/2017 11:08 UNIT: [facility] ROOM: STUDY DESCRIPTION: XA Abscess Drain Injection Attending Physician: Ranjit Trejo III, M.D. Referring Physician: Ranjit Trejo III, M.D. Ordering Physician: Ranjit Trejo III, M.D. Primary Care Physician: No Primary Care Physician MEDICAL IMAGING REPORT This report is preliminary unless electronic signature is present EXAM Abscess drain injection under fluoroscopy 03/09/2017 HISTORY Left lower quadrant abscess post colostomy. Patient returns after additional week of intensive management of the left-sided drain. The site appears normal. PROCEDURE The tube was injected with contrast media showing further decrease in size of the abscess cavity. It is significantly smaller than on the prior study of 03/04. The tube was flushed and again left to [place] suction drainage. Total of 3 spot radiographs were obtained. Total fluoroscopy time was 0.4 minutes. ASSESSMENT AND PLAN Resolving left lower quadrant abscess. The patient is to follow up with Dr. Kendell Rodriguez on 03/13/2017 at [facility] with presumed removal of the tube at that time. Dictated by... Jewel Stark M.D. THIS IS AN ELECTRONICALLY VERIFIED REPORT Jewel Stark M.D. at 03/09/2017 4:52 PM JEREMY/jayla TD: 03/09/2017 15:20 JOB #: [id number] [facility] A Service of [facility] RADIOLOGY TEXT RESULTS PATIENT: QUINN SESAY LOCATION: [facility] #: [id number] : 72 UNIT #: [id number] AGE: [address]: Ranjit Trejo III, MD SEX: M ORDER DR: MEDICAL IMAGING REPORT Page 1 of 1 COPY
== END | disposition home or self-care (01) ==
LOC: CIVR 10:52
PROC: 0W9F0ZZ Drainage of Abdominal Wall, Open Approach (ICD-10-PCS; principal; 2017-03-09)
DX: L02.211 Cutaneous abscess of abdominal wall (principal); Z97.8 Presence of other specified devices; Z98.890 Other specified postprocedural states
CPT/HCPCS: 76080; Q9967

== ENCOUNTER → 2017-03-11 | Outpatient (CLI) | payer BC ==
[2017-03-11 15:44] LABS: HEMATOCRIT 41.2 % (38.0-50.0); HEMOGLOBIN 13.8 gm/dL (13.0-16.0); MEAN CELL VOLUME 91.5 FL (83-96); MEAN CORPUSCULAR HEMOGLOBIN 30.6 PG (28-34); MEAN CORPUSCULAR HGB CONC 33.5 g/dL (30-36); MEAN PLATELET VOLUME 7.9 FL (6.5-11.5); RED BLOOD COUNT 4.51 X10e (3.90-5.60); RED CELL DISTRIBUTION WIDTH 16.7 % (11.0-15.5); WHITE BLOOD COUNT 18.3 X10e3 (4.0-10.5)
== END | disposition home or self-care (01) ==
LOC: CLAB 15:27
PROVIDERS: Surgery
DX: R50.9 Fever, unspecified (principal)
CPT/HCPCS: 36415; 85027

== ENCOUNTER → 2017-03-12 | Outpatient (CLI) | payer BC ==
--- NOTE | ~2017-03-12 | CT4 ---
[facility] A Service of [facility] RADIOLOGY TEXT RESULTS PATIENT: QUINN SESAY LOCATION: [facility] : 71 UNIT #: [id number] AGE: [address]: Ranjit Trejo III, MD SEX: M ORDER DR: [id number] [facility] [address] [place], [place] [address] [id number] O MR#: [id number] [facility] #: [id number] NAME: QUINN SESAY : 1970 SEX: M STUDY DATE/TIME: 03/12/2017 14:30 UNIT: [facility] ROOM: STUDY DESCRIPTION: CT Abd and Pelv Wo Cont Attending Physician: Ranjit Trejo III, M.D. Ordering Physician: Ranjit Trjeo III, M.D. Primary Care Physician: No Primary Care Physician MEDICAL IMAGING REPORT This report is preliminary unless electronic signature is present EXAM Abdomen and pelvis CT without contrast. HISTORY Fever and diarrhea for the past 2 days. Recent drainage of an abdominal abscess. TECHNIQUE Axial images were obtained without contrast. This CT exam was performed with one or more of the following radiation dose reduction techniques: automatic exposure control, adjustment of mA and/or kV according to patient size, and iterative reconstruction. FINDINGS The liver, spleen and pancreas are normal in size. Kidneys and adrenals are unremarkable. A drain is seen in a dense collection along the left anterior abdominal wall. The position of the drain appears satisfactory and not significantly changed. The collection measures slightly smaller in transverse diameter. On the previous examination, it measures 7.6 x 4.4 cm and now measures 6.7 x 2.8 cm. Reactive inflammatory changes are seen in the fat adjacent to this collection. This appears similar to the previous exam. No new collections are seen elsewhere. No distended bowel loops are seen. IMPRESSION The drain remains in satisfactory position and the fluid collection on the left is slightly smaller since the previous examination but has not resolved. No new fluid collections are seen. No other changes are seen elsewhere in the abdomen or pelvis. Dictated by... Lul Rudolph M.D. [facility] A Service of [facility] & [facility] RADIOLOGY TEXT RESULTS PATIENT: QUINN SESAY LOCATION: [facility] : 72 UNIT #: [id number] AGE: [address]: Ranjit Trejo III, MD SEX: M ORDER DR: THIS IS AN ELECTRONICALLY VERIFIED REPORT Lul Rudolph M.D. at 03/12/2017 10:22 PM CHASITY/hammad TD: 03/12/2017 21:06 JOB #: [id number] MEDICAL IMAGING REPORT Page 1 of 1 COPY
== END | disposition home or self-care (01) ==
LOC: CCAT 13:46
DX: K68.11 Postprocedural retroperitoneal abscess (principal)
CPT/HCPCS: 74176

== ENCOUNTER → 2017-03-13 | Outpatient (CLI) | payer BC ==
--- NOTE | ~2017-03-13 | XA231 ---
[facility] A Service of [facility] RADIOLOGY TEXT RESULTS PATIENT: QUINN SESAY LOCATION: [facility] : 71 UNIT #: [id number] AGE: [address]: Ranjit Trejo III, MD SEX: M ORDER DR: [id number] [facility] [address] [place], [place] [address] [id number] O MR#: [id number] Acc #: [id number] NAME: QUINN SESAY : 1970 SEX: M STUDY DATE/TIME: 03/13/2017 13:26 [facility] ROOM: STUDY DESCRIPTION: XA Consult Attending Physician: Ranjit Trejo III, M.D. Primary Care Physician: No Primary Care Physician MEDICAL IMAGING REPORT This report is preliminary unless electronic signature is present EXAM Abdominal drain removal. INDICATION 46-year-old male with a large abdominal fluid collection following colostomy reversal. He has had a drainage catheter in place and it has been upsized. The collection is now significantly smaller than its original size and the drain is no longer having any output greater the amount of saline injected to flush the drain, approximately 5-10 ml/day. Patient is asymptomatic clinically and does not have any tenderness or discomfort in the region of the drain. The drainage is some thin brown fluid and is not purulent. Review of a CT scan from yesterday does demonstrates a small persistent collection but it is significantly decreased in size than the initial large collection. Because the drainage catheter is no longer having any significant output and the patient is clinically asymptomatic, the decision was made today to remove the drain in its entirety. PROCEDURE The drain was cut and removed and a sterile dressing was applied. IMPRESSION Successful abdominal drain removal. Dictated by... Kendell Rodriguez M.D. THIS IS AN ELECTRONICALLY VERIFIED REPORT Kendell Rodriguez M.D. at 03/16/2017 12:32 PM [facility] A Service of [facility] RADIOLOGY TEXT RESULTS PATIENT: QUINN SESAY LOCATION: [facility] : 72 UNIT #: [id number] AGE: [address]: Ranjit Trejo III, MD SEX: M ORDER DR: DONALD/can TD: 03/13/2017 17:10 JOB #: [id number] MEDICAL IMAGING REPORT Page 1 of 1 COPY
== END | disposition home or self-care (01) ==
LOC: CIVR 12:33
DX: T81.4XXA Infection following a procedure, initial encounter (principal)
CPT/HCPCS: 76140